=== PATIENT | male | born 1960 | race Caucasian/White ===

== ENCOUNTER 2017-10-10 14:55 | Inpatient (IN) | payer BC ==
[~2017-10-10] VITALS: Ht 177.8 cm; Wt 122.5 kg
[2017-10-10 15:00] VITALS: BP_SYST 119
[2017-10-10] MEDS ORDERED: METF1000 PO (15:19)
[2017-10-10] MEDS ORDERED: FURO-149 PO (15:19)
[2017-10-10] MEDS ORDERED: FLUT1BLS3 INH (15:19)
[2017-10-10] MEDS ORDERED: LISI30TA36 PO (15:19)
[2017-10-10] MEDS ORDERED: POTA20TA83 PO (15:19)
[2017-10-10] MEDS ORDERED: UMEC62.5 IH (15:19)
[2017-10-10] MEDS ORDERED: ALBMDI INH (15:19)
[2017-10-10] MEDS ORDERED: ALBUTEROL SULFATE 0.083% 2.5 MG/3 ML VIAL.NEB INH ONE (15:45)
[2017-10-10] MEDS ORDERED: FUROSEMIDE 40 MG/4 ML VIAL IVP ONE (15:45)
[2017-10-10] MEDS ORDERED: IPRATROPIUM BROM 0.5 MG/2.5 ML VIAL.NEB (ATROVENT) INH ONE (15:45)
[2017-10-10 15:57] LABS: BASOPHILS # (AUTO) 0.1 K/uL (0.0-0.2); LYMPHOCYTES # (AUTO) 1.1 K/uL (1.0-5.5); MONOCYTES # (AUTO) 1.1 K/uL (0.0-1.0); WHITE BLOOD COUNT (AUTO) 7.2 K/uL (4.8-10.8)
[2017-10-10 16:04] LABS: BASOPHILS % (AUTO) 0.7 % (0.0-2.0); EOSINOPHILS # (AUTO) 0.1 K/uL (0.0-0.4); EOSINOPHILS % (AUTO) 0.9 % (0.0-4.0); HEMATOCRIT 49.3 % (36-54); HEMOGLOBIN 15.7 g/dL (14.0-18.0); LYMPHOCYTES % (AUTO) 14.8 % (20.5-51.5); MEAN CORPUSCULAR HEMOGLOBIN 31 pg (27-31); MEAN CORPUSCULAR HGB CONC 32 % (32-36); MEAN CORPUSCULAR VOLUME 97 fL (79.0-98.0); MONOCYTES % (AUTO) 15.5 % (1.7-9.3); NEUTROPHILS # (AUTO) 4.8 K/uL (1.8-7.7); NEUTROPHILS % (AUTO) 68.1 % (40.0-70.0); PLATELET COUNT (AUTO) 164 K/uL (130-430); RED BLOOD CELL COUNT(AUTO) 5.09 MIL/uL (4.2-6.2); RED CELL DISTRIBUTION WIDTH 14.2 % (9.0-15.0)
[2017-10-10 16:24] LABS: CALCIUM 9.4 mg/dL (8.4-11.0); CREATININE 1.01 mg/dL (0.55-1.30); POTASSIUM 5.1 mmol/L (3.5-5.1)
[2017-10-10 16:29] LABS: ALBUMIN 2.9 g/dL (3.4-4.8); TOTAL BILIRUBIN 1.4 mg/dL (0.0-1.0)
[2017-10-10 16:31] LABS: INR 1.2 (0.80-1.20); PROTHROMBIN TIME 12.5 SECS (9.5-12.5)
[2017-10-10] MEDS ORDERED: methylPREDNISolone SOD SUCC/PF 62.5 MG/ML VIAL IVP ONE (17:00)
[2017-10-10 17:59] VITALS: BP_SYST 127
[2017-10-10] MEDS ORDERED: ACETAMINOPHEN 500 MG TABLET PO PRN (19:00)
[2017-10-10] MEDS ORDERED: DEXTROSE 50% JECT 50 ML DISP.SYRIN IVP PRN (19:00)
[2017-10-10] MEDS ORDERED: ALBUTEROL SULFATE 0.083% 2.5 MG/3 ML VIAL.NEB INH PRN (19:00)
[2017-10-10] MEDS ORDERED: *LOVENOX 1MG/KG Q24H/PHARMACY XX ONE (19:00)
[2017-10-10 20:00] VITALS: BP_SYST 124
[2017-10-10] MEDS ORDERED: IOHEXOL 350 mgI/mL, 150 ML INFUS..BTL IV ONE (20:11)
[2017-10-10 21:41] VITALS: BP_SYST 127
[2017-10-10] MEDS: FUROSEMIDE 20 MG/2 ML VIAL IVP SCH (21:43)
[2017-10-10] MEDS: ENOXAPARIN SODIUM 120 MG/0.8 ML SYRINGE SUBCUT SCH (21:44)
[2017-10-10] MEDS: INSULIN REGULAR, HUMAN 100 UNITS/ML, 10 ML VIAL (novoLIN R) SUBCUT PRN (21:58)
[2017-10-10 23:14] VITALS: BP_SYST 122
[2017-10-11] MEDS: INSULIN REGULAR, HUMAN 100 UNITS/ML, 10 ML VIAL (novoLIN R) SUBCUT PRN ×4 (06:23→20:43)
[2017-10-11 06:25] LABS: BASOPHILS % (AUTO) 0.1 % (0.0-2.0); EOSINOPHILS % (AUTO) 0.1 % (0.0-4.0); HEMATOCRIT 48.8 % (36-54); HEMOGLOBIN 15.5 g/dL (14.0-18.0); LYMPHOCYTES # (AUTO) 0.5 K/uL (1.0-5.5); LYMPHOCYTES % (AUTO) 9.1 % (20.5-51.5); MEAN CORPUSCULAR HEMOGLOBIN 31 pg (27-31); MEAN CORPUSCULAR HGB CONC 32 % (32-36); MEAN CORPUSCULAR VOLUME 97 fL (79.0-98.0); MONOCYTES # (AUTO) 0.2 K/uL (0.0-1.0); MONOCYTES % (AUTO) 4.4 % (1.7-9.3); NEUTROPHILS # (AUTO) 4.6 K/uL (1.8-7.7); NEUTROPHILS % (AUTO) 86.3 % (40.0-70.0); PLATELET COUNT (AUTO) 158 K/uL (130-430); RED BLOOD CELL COUNT(AUTO) 5.02 MIL/uL (4.2-6.2); RED CELL DISTRIBUTION WIDTH 14.3 % (9.0-15.0); WHITE BLOOD COUNT (AUTO) 5.3 K/uL (4.8-10.8)
[2017-10-11 06:26] LABS: CALCIUM 8.9 mg/dL (8.4-11.0); CREATININE 1.02 mg/dL (0.55-1.30); POTASSIUM 4.9 mmol/L (3.5-5.1)
[2017-10-11 06:35] LABS: ALBUMIN 2.8 g/dL (3.4-4.8); TOTAL BILIRUBIN 1.6 mg/dL (0.0-1.0)
[2017-10-11 08:21] VITALS: BP_SYST 111
[2017-10-11] MEDS: FUROSEMIDE 20 MG/2 ML VIAL IVP SCH (08:25)
[2017-10-11] MEDS ORDERED: ALBUTEROL SULFATE 0.083% 2.5 MG/3 ML VIAL.NEB INH PRN (09:30)
[2017-10-11] MEDS ORDERED: IPRATROPIUM BROM 0.5 MG/2.5 ML VIAL.NEB (ATROVENT) INH PRN (09:30)
[2017-10-11] MEDS: IPRATROPIUM BROM 0.5 MG/2.5 ML VIAL.NEB (ATROVENT) INH SCH ×4 (10:46→23:28)
[2017-10-11] MEDS: ALBUTEROL SULFATE 0.083% 2.5 MG/3 ML VIAL.NEB INH SCH ×4 (10:47→23:27)
[2017-10-11] MEDS ORDERED: FUROSEMIDE 100 MG in D5W 90 ML IV SCH (11:00)
[2017-10-11 11:31] VITALS: BP_SYST 115
[2017-10-11] MEDS ORDERED: SPIRONOLACTONE 25 MG TABLET (ALDACTONE) PO ONE (12:45)
[2017-10-11] MEDS ORDERED: METOLAZONE 2.5 MG TABLET PO ONE (12:45)
[2017-10-11 14:50] LABS: BF APPEARANCE UNSPUN HAZY (CLEAR); BODY FLUID COLOR YELLOW (LT YELLOW); BODY FLUID SOURCE/ TYPE ASCITES; BODY FLUID TOTAL VOLUME 3000 mL; RBC, BODY FLUID 3660 /uL; WBC, BODY FLUID 368 /uL
[2017-10-11 14:51] LABS: BODY FLUID OTHER CELLS 0 %; EOSINOPHIL, BODY FLUID 0 %; LYMPHOCYTES, BODY FLUID 82 %; MONOCYTES,BODY FLUID 15 %; NEUTROPHIL, BODY FLUID 3 %
[2017-10-11 15:15] LABS: SOURCE/TYPE ,BODY FLUID ASCITES
[2017-10-11 15:46] VITALS: BP_SYST 116
[2017-10-11 20:00] VITALS: BP_SYST 102
[2017-10-11] MEDS: ENOXAPARIN SODIUM 120 MG/0.8 ML SYRINGE SUBCUT SCH (20:28)
[2017-10-11 22:35] LABS: BODY FLUID GLUCOSE 273 mg/dL; BODY FLUID TOTAL PROTEIN 1.9 g/dL
[2017-10-11 23:30] VITALS: BP_SYST 131
[2017-10-12] MEDS: IPRATROPIUM BROM 0.5 MG/2.5 ML VIAL.NEB (ATROVENT) INH SCH ×6 (03:00→23:55)
[2017-10-12] MEDS: ALBUTEROL SULFATE 0.083% 2.5 MG/3 ML VIAL.NEB INH SCH ×6 (03:00→23:55)
[2017-10-12 06:01] LABS: BASOPHILS % (AUTO) 0.1 % (0.0-2.0); HEMATOCRIT 48.1 % (36-54); HEMOGLOBIN 15.2 g/dL (14.0-18.0); LYMPHOCYTES # (AUTO) 1.2 K/uL (1.0-5.5); LYMPHOCYTES % (AUTO) 13.2 % (20.5-51.5); MEAN CORPUSCULAR HEMOGLOBIN 31 pg (27-31); MEAN CORPUSCULAR HGB CONC 32 % (32-36); MEAN CORPUSCULAR VOLUME 98 fL (79.0-98.0); MONOCYTES % (AUTO) 10.7 % (1.7-9.3); PLATELET COUNT (AUTO) 163 K/uL (130-430); RED BLOOD CELL COUNT(AUTO) 4.93 MIL/uL (4.2-6.2); RED CELL DISTRIBUTION WIDTH 14.2 % (9.0-15.0); WHITE BLOOD COUNT (AUTO) 9.2 K/uL (4.8-10.8)
[2017-10-12 06:04] LABS: ALBUMIN 2.9 g/dL (3.4-4.8); CALCIUM 9.1 mg/dL (8.4-11.0); CREATININE 0.92 mg/dL (0.55-1.30); POTASSIUM 3.3 mmol/L (3.5-5.1); TOTAL BILIRUBIN 1.4 mg/dL (0.0-1.0)
[2017-10-12] MEDS: INSULIN REGULAR, HUMAN 100 UNITS/ML, 10 ML VIAL (novoLIN R) SUBCUT PRN ×3 (06:56→20:54)
[2017-10-12 07:55] VITALS: BP_SYST 127
[2017-10-12] MEDS ORDERED: POTASSIUM CHLORIDE 20 MEQ TAB.PRT.SR PO ONE (08:30)
[2017-10-12] MEDS: SPIRONOLACTONE 25 MG TABLET (ALDACTONE) PO SCH (08:47)
[2017-10-12] MEDS: FUROSEMIDE 100 MG in D5W 90 ML IV SCH ×2 (11:00→14:08)
[2017-10-12 12:18] VITALS: BP_SYST 106
[2017-10-12 16:00] VITALS: BP_SYST 124
[2017-10-12 20:00] VITALS: BP_SYST 111
[2017-10-12] MEDS: ENOXAPARIN SODIUM 120 MG/0.8 ML SYRINGE SUBCUT SCH (20:49)
[2017-10-13 01:53] VITALS: BP_SYST 107
[2017-10-13] MEDS ORDERED: FUROSEMIDE 40 MG/4 ML VIAL ONE (03:06)
[2017-10-13] MEDS ORDERED: FUROSEMIDE 20 MG/2 ML VIAL ONE (03:06)
[2017-10-13 06:58] LABS: BASOPHILS % (AUTO) 0.5 % (0.0-2.0); EOSINOPHILS # (AUTO) 0.1 K/uL (0.0-0.4); EOSINOPHILS % (AUTO) 0.9 % (0.0-4.0); HEMATOCRIT 47.5 % (36-54); HEMOGLOBIN 15.6 g/dL (14.0-18.0); LYMPHOCYTES # (AUTO) 1.6 K/uL (1.0-5.5); LYMPHOCYTES % (AUTO) 21.6 % (20.5-51.5); MEAN CORPUSCULAR HEMOGLOBIN 31 pg (27-31); MEAN CORPUSCULAR HGB CONC 33 % (32-36); MEAN CORPUSCULAR VOLUME 96 fL (79.0-98.0); MONOCYTES # (AUTO) 0.8 K/uL (0.0-1.0); MONOCYTES % (AUTO) 11.2 % (1.7-9.3); NEUTROPHILS # (AUTO) 5.1 K/uL (1.8-7.7); NEUTROPHILS % (AUTO) 65.8 % (40.0-70.0); PLATELET COUNT (AUTO) 178 K/uL (130-430); RED BLOOD CELL COUNT(AUTO) 4.96 MIL/uL (4.2-6.2); RED CELL DISTRIBUTION WIDTH 14.2 % (9.0-15.0); WHITE BLOOD COUNT (AUTO) 7.6 K/uL (4.8-10.8)
[2017-10-13 07:55] VITALS: BP_SYST 117
[2017-10-13] MEDS: IPRATROPIUM BROM 0.5 MG/2.5 ML VIAL.NEB (ATROVENT) INH SCH ×5 (08:05→23:00)
[2017-10-13] MEDS: ALBUTEROL SULFATE 0.083% 2.5 MG/3 ML VIAL.NEB INH SCH ×5 (08:05→23:00)
[2017-10-13] MEDS: SPIRONOLACTONE 25 MG TABLET (ALDACTONE) PO SCH (08:44)
[2017-10-13] MEDS: FUROSEMIDE 100 MG in D5W 90 ML IV SCH (08:45)
[2017-10-13 12:55] VITALS: BP_SYST 106
[2017-10-13 14:16] VITALS: BP_SYST 106
[2017-10-13 16:00] VITALS: BP_SYST 127
[2017-10-13 19:50] VITALS: BP_SYST 97
[2017-10-13] MEDS: ENOXAPARIN SODIUM 120 MG/0.8 ML SYRINGE SUBCUT SCH (20:51)
[2017-10-13] MEDS: INSULIN REGULAR, HUMAN 100 UNITS/ML, 10 ML VIAL (novoLIN R) SUBCUT PRN (20:54)
[2017-10-14 00:14] VITALS: BP_SYST 93
[2017-10-14] MEDS: ALBUTEROL SULFATE 0.083% 2.5 MG/3 ML VIAL.NEB INH SCH ×6 (04:50→22:47)
[2017-10-14] MEDS: IPRATROPIUM BROM 0.5 MG/2.5 ML VIAL.NEB (ATROVENT) INH SCH ×6 (04:51→22:47)
[2017-10-14 07:10] LABS: CALCIUM 9.2 mg/dL (8.4-11.0); CREATININE 0.8 mg/dL (0.55-1.30); POTASSIUM 3.5 mmol/L (3.5-5.1)
[2017-10-14 08:00] VITALS: BP_SYST 110
[2017-10-14] MEDS: SPIRONOLACTONE 25 MG TABLET (ALDACTONE) PO SCH (08:36)
[2017-10-14] MEDS: FUROSEMIDE 100 MG in D5W 90 ML IV SCH (11:29)
[2017-10-14] MEDS: INSULIN REGULAR, HUMAN 100 UNITS/ML, 10 ML VIAL (novoLIN R) SUBCUT PRN ×2 (11:35→20:59)
[2017-10-14] MEDS ORDERED: MILK OF MAGNESIA 30 ML UDC PO PRN (12:00)
[2017-10-14 12:38] VITALS: BP_SYST 106
[2017-10-14] MEDS ORDERED: METOLAZONE 5 MG TABLET PO ONE (13:15)
[2017-10-14] MEDS: NEOMY SULF/BACITRAC ZN/POLY 14.2 GM OINT..GM. TP SCH ×2 (15:13→21:00)
[2017-10-14 16:00] VITALS: BP_SYST 109
[2017-10-14 20:45] VITALS: BP_SYST 103
[2017-10-14] MEDS: POTASSIUM CHLORIDE 20 MEQ/PKT PACKET PO SCH (20:49)
[2017-10-14] MEDS: METOLAZONE 5 MG TABLET PO SCH (20:50)
[2017-10-14] MEDS: DOCUSATE SODIUM 100 MG CAPSULE PO SCH (20:51)
[2017-10-14] MEDS: ENOXAPARIN SODIUM 120 MG/0.8 ML SYRINGE SUBCUT SCH (20:51)
[2017-10-15 00:17] VITALS: BP_SYST 117
[2017-10-15] MEDS: IPRATROPIUM BROM 0.5 MG/2.5 ML VIAL.NEB (ATROVENT) INH SCH ×5 (03:00→23:00)
[2017-10-15] MEDS: ALBUTEROL SULFATE 0.083% 2.5 MG/3 ML VIAL.NEB INH SCH ×5 (03:00→23:00)
[2017-10-15 07:25] LABS: BASOPHILS % (AUTO) 0.6 % (0.0-2.0); EOSINOPHILS # (AUTO) 0.3 K/uL (0.0-0.4); EOSINOPHILS % (AUTO) 3.7 % (0.0-4.0); HEMATOCRIT 48.8 % (36-54); LYMPHOCYTES # (AUTO) 1.5 K/uL (1.0-5.5); LYMPHOCYTES % (AUTO) 20.5 % (20.5-51.5); MEAN CORPUSCULAR HEMOGLOBIN 31 pg (27-31); MEAN CORPUSCULAR HGB CONC 33 % (32-36); MEAN CORPUSCULAR VOLUME 95 fL (79.0-98.0); MONOCYTES # (AUTO) 0.9 K/uL (0.0-1.0); MONOCYTES % (AUTO) 12.3 % (1.7-9.3); NEUTROPHILS # (AUTO) 4.4 K/uL (1.8-7.7); NEUTROPHILS % (AUTO) 62.9 % (40.0-70.0); PLATELET COUNT (AUTO) 132 K/uL (130-430); RED BLOOD CELL COUNT(AUTO) 5.12 MIL/uL (4.2-6.2); RED CELL DISTRIBUTION WIDTH 13.8 % (9.0-15.0); WHITE BLOOD COUNT (AUTO) 7.1 K/uL (4.8-10.8)
[2017-10-15 07:43] LABS: ALBUMIN 2.9 g/dL (3.4-4.8); CALCIUM 9.5 mg/dL (8.4-11.0); CREATININE 0.86 mg/dL (0.55-1.30); POTASSIUM 3.1 mmol/L (3.5-5.1); TOTAL BILIRUBIN 2.2 mg/dL (0.0-1.0)
[2017-10-15 08:00] VITALS: BP_SYST 122
[2017-10-15] MEDS: POTASSIUM CHLORIDE 20 MEQ/PKT PACKET PO SCH ×3 (09:26→21:00)
[2017-10-15] MEDS: DOCUSATE SODIUM 100 MG CAPSULE PO SCH ×2 (09:26→21:00)
[2017-10-15] MEDS: METOLAZONE 5 MG TABLET PO SCH ×2 (09:28→21:02)
[2017-10-15] MEDS: SPIRONOLACTONE 25 MG TABLET (ALDACTONE) PO SCH (09:29)
[2017-10-15] MEDS: NEOMY SULF/BACITRAC ZN/POLY 14.2 GM OINT..GM. TP SCH ×2 (09:30→21:02)
[2017-10-15] MEDS: FUROSEMIDE 100 MG in D5W 90 ML IV SCH (11:26)
[2017-10-15] MEDS: INSULIN REGULAR, HUMAN 100 UNITS/ML, 10 ML VIAL (novoLIN R) SUBCUT PRN ×2 (11:31→21:10)
[2017-10-15 12:08] VITALS: BP_SYST 125
[2017-10-15 16:00] VITALS: BP_SYST 100
[2017-10-15 20:09] VITALS: BP_SYST 111
[2017-10-15] MEDS: ENOXAPARIN SODIUM 120 MG/0.8 ML SYRINGE SUBCUT SCH (21:01)
[2017-10-16] VITALS (8 sets, daily range): BP systolic 100–120
[2017-10-16] MEDS ORDERED: FUROSEMIDE 40 MG/4 ML VIAL ONE (00:33)
[2017-10-16] MEDS ORDERED: FUROSEMIDE 20 MG/2 ML VIAL ONE (00:34)
[2017-10-16] MEDS: FUROSEMIDE 100 MG in D5W 90 ML IV SCH (01:24)
[2017-10-16] MEDS: ALBUTEROL SULFATE 0.083% 2.5 MG/3 ML VIAL.NEB INH SCH ×5 (03:00→23:00)
[2017-10-16] MEDS: IPRATROPIUM BROM 0.5 MG/2.5 ML VIAL.NEB (ATROVENT) INH SCH ×5 (03:00→23:00)
[2017-10-16 07:16] LABS: CALCIUM 10.4 mg/dL (8.4-11.0); CREATININE 0.81 mg/dL (0.55-1.30); POTASSIUM 3.4 mmol/L (3.5-5.1)
[2017-10-16] MEDS: POTASSIUM CHLORIDE 20 MEQ/PKT PACKET PO SCH ×3 (08:28→21:18)
[2017-10-16] MEDS: SPIRONOLACTONE 25 MG TABLET (ALDACTONE) PO SCH (08:28)
[2017-10-16] MEDS: METOLAZONE 5 MG TABLET PO SCH ×2 (08:29→21:18)
[2017-10-16] MEDS: DOCUSATE SODIUM 100 MG CAPSULE PO SCH ×2 (08:29→21:16)
[2017-10-16] MEDS: NEOMY SULF/BACITRAC ZN/POLY 14.2 GM OINT..GM. TP SCH ×2 (08:30→21:19)
[2017-10-16] MEDS ORDERED: POTASSIUM CHLORIDE 20 MEQ TAB.PRT.SR PO ONE (10:15)
[2017-10-16] MEDS: INSULIN REGULAR, HUMAN 100 UNITS/ML, 10 ML VIAL (novoLIN R) SUBCUT PRN ×2 (16:28→21:26)
[2017-10-16] MEDS: ENOXAPARIN SODIUM 120 MG/0.8 ML SYRINGE SUBCUT SCH (21:18)
[2017-10-17 00:46] VITALS: BP_SYST 116
[2017-10-17] MEDS: IPRATROPIUM BROM 0.5 MG/2.5 ML VIAL.NEB (ATROVENT) INH SCH ×3 (03:00→11:44)
[2017-10-17] MEDS: ALBUTEROL SULFATE 0.083% 2.5 MG/3 ML VIAL.NEB INH SCH ×3 (03:00→11:44)
[2017-10-17 08:10] VITALS: BP_SYST 110
[2017-10-17] MEDS: POTASSIUM CHLORIDE 20 MEQ/PKT PACKET PO SCH (09:49)
[2017-10-17] MEDS: DOCUSATE SODIUM 100 MG CAPSULE PO SCH (09:49)
[2017-10-17] MEDS: SPIRONOLACTONE 25 MG TABLET (ALDACTONE) PO SCH (09:50)
[2017-10-17] MEDS: NEOMY SULF/BACITRAC ZN/POLY 14.2 GM OINT..GM. TP SCH (09:50)
[2017-10-17] MEDS: METOLAZONE 5 MG TABLET PO SCH (09:50)
[2017-10-17 10:49] VITALS: BP_SYST 110
[2017-10-17 12:15] VITALS: BP_SYST 126
== END 2017-10-17 12:30 | disposition home or self-care (01) | DRG 291 ==
LOC: SED 14:55 → STU 17:24 → SMU 10-16 18:11
PROVIDERS: ADMIT Internal Medicine Hospice and Palliative Medicine; ATTEND Internal Medicine Hospice and Palliative Medicine
PROC: 0W9G3ZZ Drainage of Peritoneal Cavity, Percutaneous Approach (ICD-10-PCS; principal; 2017-10-11)
PROC: 5A09357 Assistance with Respiratory Ventilation, Less than 24 Consecutive Hours, Continuous Positive Airway Pressure (ICD-10-PCS; 2017-10-11)
PROC: 5A09357 Assistance with Respiratory Ventilation, Less than 24 Consecutive Hours, Continuous Positive Airway Pressure (ICD-10-PCS; 2017-10-12)
PROC: 5A09357 Assistance with Respiratory Ventilation, Less than 24 Consecutive Hours, Continuous Positive Airway Pressure (ICD-10-PCS; 2017-10-13)
PROC: 5A09357 Assistance with Respiratory Ventilation, Less than 24 Consecutive Hours, Continuous Positive Airway Pressure (ICD-10-PCS; 2017-10-14)
PROC: 5A09357 Assistance with Respiratory Ventilation, Less than 24 Consecutive Hours, Continuous Positive Airway Pressure (ICD-10-PCS; 2017-10-15)
PROC: 5A09357 Assistance with Respiratory Ventilation, Less than 24 Consecutive Hours, Continuous Positive Airway Pressure (ICD-10-PCS; 2017-10-16)
PROC: 5A09357 Assistance with Respiratory Ventilation, Less than 24 Consecutive Hours, Continuous Positive Airway Pressure (ICD-10-PCS; 2017-10-17)
DX: I13.0 Hypertensive heart and chronic kidney disease with heart failure and stage 1 through stage 4 chronic kidney disease, or unspecified chronic kidney disease (principal); J96.01 Acute respiratory failure with hypoxia; I27.20 Pulmonary hypertension, unspecified; E11.22 Type 2 diabetes mellitus with diabetic chronic kidney disease; E66.01 Morbid (severe) obesity due to excess calories; I27.81 Cor pulmonale (chronic); I50.33 Acute on chronic diastolic (congestive) heart failure; I24.9 Acute ischemic heart disease, unspecified; R18.8 Other ascites; R16.2 Hepatomegaly with splenomegaly, not elsewhere classified; E11.9 Type 2 diabetes mellitus without complications; G47.33 Obstructive sleep apnea (adult) (pediatric); E87.6 Hypokalemia; F17.210 Nicotine dependence, cigarettes, uncomplicated; K59.00 Constipation, unspecified; J44.9 Chronic obstructive pulmonary disease, unspecified; N18.9 Chronic kidney disease, unspecified; Z82.49 Family history of ischemic heart disease and other diseases of the circulatory system; Z83.3 Family history of diabetes mellitus; Z88.6 Allergy status to analgesic agent; Z79.899 Other long term (current) drug therapy; Z91.030 Bee allergy status; Z68.38 Body mass index [BMI] 38.0-38.9, adult
CPT/HCPCS: 36415; 36600; 49083; 71045; 71275; 76700-TC; 80048; 80053; 82550-TC; 82803-TC; 82947-TC; 82962; 83880; 84157-TC; 84484; 85025; 85379; 85610-TC; 85730-TC; 88108; 88305; 88313; 89051-TC; 89060-TC; 93005; 93306; 93970; 94640; 94660; 94760; 96374; 99285; A5061; C1729; J1650; J1815; J1940; J2930; J7060; Q9967

== ENCOUNTER 2017-10-21 11:18 | Emergency (ER) | payer BC ==
[~2017-10-21] VITALS: Ht 177.8 cm; Wt 119.3 kg
[~2017-10-21 11:18] MED LIST: ALBMDI INH; FLUT1BLS3 INH; FURO-149 PO; LISI30TA36 PO; METF1000 PO; POTA20TA83 PO; UMEC62.5 IH
[2017-10-21 11:23] VITALS: BP_SYST 116
[2017-10-21] MEDS ORDERED: NACL 0.9% 1,000 ML IV ONE (11:46)
[2017-10-21] MEDS ORDERED: cefTRIAXone 1 GM IVPB PREMIX 50 ML IV ONE (12:00)
[2017-10-21] MEDS ORDERED: MORPHINE 4 MG/ML INJ. SYRINGE IVP ONE (12:00)
[2017-10-21 12:09] LABS: BASOPHILS # (AUTO) 0.1 K/uL (0.0-0.2); BASOPHILS % (AUTO) 1.4 % (0.0-2.0); EOSINOPHILS # (AUTO) 0.1 K/uL (0.0-0.4); EOSINOPHILS % (AUTO) 1.6 % (0.0-4.0); HEMATOCRIT 54.2 % (36-54); HEMOGLOBIN 17.7 g/dL (14.0-18.0); LYMPHOCYTES # (AUTO) 1.4 K/uL (1.0-5.5); LYMPHOCYTES % (AUTO) 18.4 % (20.5-51.5); MEAN CORPUSCULAR HEMOGLOBIN 30 pg (27-31); MEAN CORPUSCULAR HGB CONC 33 % (32-36); MEAN CORPUSCULAR VOLUME 93 fL (79.0-98.0); MONOCYTES # (AUTO) 1.1 K/uL (0.0-1.0); MONOCYTES % (AUTO) 14.5 % (1.7-9.3); NEUTROPHILS # (AUTO) 4.9 K/uL (1.8-7.7); NEUTROPHILS % (AUTO) 64.1 % (40.0-70.0); PLATELET COUNT (AUTO) 108 K/uL (130-430); RED BLOOD CELL COUNT(AUTO) 5.84 MIL/uL (4.2-6.2); RED CELL DISTRIBUTION WIDTH 13.8 % (9.0-15.0); WHITE BLOOD COUNT (AUTO) 7.6 K/uL (4.8-10.8)
[2017-10-21 12:20] LABS: CALCIUM 9.3 mg/dL (8.4-11.0); CREATININE 0.97 mg/dL (0.55-1.30)
[2017-10-21 12:24] LABS: ALBUMIN 3.3 g/dL (3.4-4.8); INR 1.2 (0.80-1.20); PROTHROMBIN TIME 12.1 SECS (9.5-12.5); TOTAL BILIRUBIN 2.1 mg/dL (0.0-1.0)
[2017-10-21] MEDS ORDERED: BACITRACIN 1 GM OINT TP ONE ×2 (14:00→14:02)
[2017-10-21 14:13] VITALS: BP_SYST 125
== END 2017-10-21 14:13 | disposition home or self-care (01) ==
LOC: SED 11:18
DX: L03.115 Cellulitis of right lower limb (principal); I11.0 Hypertensive heart disease with heart failure; I50.9 Heart failure, unspecified; J44.9 Chronic obstructive pulmonary disease, unspecified; E11.9 Type 2 diabetes mellitus without complications; Z79.82 Long term (current) use of aspirin; Z79.899 Other long term (current) drug therapy
CPT/HCPCS: 36415; 71045; 80053; 82550; 83605; 83690; 84484; 85025; 85610; 85730; 87040; 93005; 96365; 99285; J0696; J7030; J2270

== ENCOUNTER 2022-05-25 13:12 | Inpatient (IN) | payer BC ==
[~2022-05-25] VITALS: Ht 177.8 cm; Wt 133.4 kg
[~2022-05-25 13:12] MED LIST changes: +POTA-197 PO; -POTA20TA83 PO
[2022-05-25 13:21] VITALS: BP_SYST 126
[2022-05-25] MEDS ORDERED: IPRATROPIUM/ALBUTEROL SULFATE 3 ML AMPUL.NEB (DUONEB) INH ONE (13:45)
[2022-05-25] MEDS ORDERED: methylPREDNISolone SOD SUCC/PF 62.5 MG/ML VIAL IVP ONE (13:45)
[2022-05-25 13:58] LABS: BASOPHILS # (AUTO) 0.1 K/uL (0.0-0.2); BASOPHILS % (AUTO) 1.1 % (0.0-2.0); EOSINOPHILS # (AUTO) 0.1 K/uL (0.0-0.4); EOSINOPHILS % (AUTO) 2.9 % (0.0-4.0); HEMATOCRIT 46.7 % (36-54); HEMOGLOBIN 15.4 g/dL (14.0-18.0); LYMPHOCYTES % (AUTO) 19.2 % (20.5-51.5); MEAN CORPUSCULAR HEMOGLOBIN 31 pg (27-31); MEAN CORPUSCULAR HGB CONC 33 % (32-36); MEAN CORPUSCULAR VOLUME 95 fL (79.0-98.0); MONOCYTES # (AUTO) 0.6 K/uL (0.0-1.0); MONOCYTES % (AUTO) 11.4 % (1.7-9.3); NEUTROPHILS # (AUTO) 3.4 K/uL (1.8-7.7); NEUTROPHILS % (AUTO) 65.4 % (40.0-70.0); PLATELET COUNT (AUTO) 67 K/uL (130-430); RED BLOOD CELL COUNT(AUTO) 4.89 MIL/uL (4.2-6.2); RED CELL DISTRIBUTION WIDTH 15.8 % (9.0-15.0); WHITE BLOOD COUNT (AUTO) 5.2 K/uL (4.8-10.8)
[2022-05-25 14:20] LABS: ANION GAP 12 (5-15); CALCIUM 10.1 mg/dL (8.4-11.0); CHLORIDE 109 mmol/L (98-107); CREATININE 1.51 mg/dL (0.55-1.30); GLUCOSE 98 mg/dL (70-99); UREA NITROGEN, BLOOD 23 mg/dL (8-21)
[2022-05-25 14:22] LABS: GFR AFRICAN AMERICAN 61 mL/min (>90)
[2022-05-25 14:30] LABS: ALANINE AMINOTRANSFERASE 25 U/L (12-78); ALBUMIN 3.2 g/dL (3.4-4.8); ASPARTATE AMINOTRANSFERASE 38 U/L (10-37); TOTAL BILIRUBIN 1.9 mg/dL (0.0-1.0)
[2022-05-25 17:30] VITALS: BP_SYST 150
[2022-05-25] MEDS ORDERED: ACETAMINOPHEN 325 MG TABLET PO PRN (17:30)
[2022-05-25] MEDS ORDERED: ONDANSETRON HCL 4 MG/2 ML VIAL IVP PRN (17:30)
[2022-05-25] MEDS ORDERED: MORPHINE 2 MG/ML INJ. SYRINGE IVP PRN ×2 (17:30)
[2022-05-25] MEDS ORDERED: ZOLPIDEM TARTRATE 5 MG TABLET PO PRN (17:30)
[2022-05-25] MEDS ORDERED: NALOXONE HCL 0.4 MG/ML AMP (NARCAN) IVP PRN ×2 (17:30)
[2022-05-25] MEDS ORDERED: MAGNESIUM SULFATE 50 ML IV PRN (17:30)
[2022-05-25] MEDS ORDERED: DOCUSATE SODIUM 100 MG CAPSULE PO PRN (17:30)
[2022-05-25] MEDS ORDERED: MUPIROCIN 2% TOPICAL OINTMENT 22 GM NS PRN (17:30)
[2022-05-25] MEDS ORDERED: POTASSIUM CHLORIDE 20 MEQ TAB.PRT.SR PO PRN (17:30)
[2022-05-25] MEDS ORDERED: LORazepam 2 MG/ML VIAL IVP PRN (17:30)
[2022-05-25 17:44] VITALS: BP_SYST 126
[2022-05-25] MEDS ORDERED: ERGO400T7 PO (19:07)
[2022-05-25] MEDS ORDERED: LEVO100T9 PO (19:07)
[2022-05-25 20:20] VITALS: BP_SYST 114
[2022-05-25] MEDS: IPRATROPIUM/ALBUTEROL SULFATE 3 ML AMPUL.NEB (DUONEB) INH PRN (20:30)
[2022-05-25] MEDS: METHYLPREDNISOLONE SOD SUCC 40 MG/ML VIAL IVP SCH (20:43)
[2022-05-25] MEDS: NACL 0.9% 1,000 ML IV SCH (20:46)
[2022-05-25] MEDS: INSULIN REGULAR, HUMAN 100 UNITS/ML, 3 ML VIAL (humuLIN R) SUBCUT SCH (20:58)
[2022-05-25] MEDS ORDERED: HEPARIN SODIUM,PORCINE 5,000 UNITS/ML VIAL SUBCUT SCH (21:00)
[2022-05-26] VITALS (17 sets, daily range): BP systolic 70–119
[2022-05-26] MEDS: INSULIN REGULAR, HUMAN 100 UNITS/ML, 3 ML VIAL (humuLIN R) SUBCUT SCH ×6 (06:13→23:25)
[2022-05-26] MEDS: IPRATROPIUM/ALBUTEROL SULFATE 3 ML AMPUL.NEB (DUONEB) INH PRN ×2 (06:38→12:02)
[2022-05-26 07:03] LABS: CALCIUM 9.5 mg/dL (8.4-11.0); CREATININE 1.63 mg/dL (0.55-1.30)
[2022-05-26 07:23] LABS: BASOPHILS % (AUTO) 0.2 % (0.0-2.0); HEMATOCRIT 42.4 % (36-54); HEMOGLOBIN 14.3 g/dL (14.0-18.0); LYMPHOCYTES # (AUTO) 0.4 K/uL (1.0-5.5); LYMPHOCYTES % (AUTO) 11.3 % (20.5-51.5); MEAN CORPUSCULAR HEMOGLOBIN 32 pg (27-31); MEAN CORPUSCULAR HGB CONC 34 % (32-36); MEAN CORPUSCULAR VOLUME 94 fL (79.0-98.0); MONOCYTES # (AUTO) 0.1 K/uL (0.0-1.0); MONOCYTES % (AUTO) 4.1 % (1.7-9.3); NEUTROPHILS # (AUTO) 2.6 K/uL (1.8-7.7); NEUTROPHILS % (AUTO) 84.4 % (40.0-70.0); PLATELET COUNT (AUTO) 72 K/uL (130-430); RED BLOOD CELL COUNT(AUTO) 4.49 MIL/uL (4.2-6.2); RED CELL DISTRIBUTION WIDTH 14.9 % (9.0-15.0); WHITE BLOOD COUNT (AUTO) 3.1 K/uL (4.8-10.8)
[2022-05-26] MEDS ORDERED: DIATR MEGLU/DIATRIZ SOD 30 ML SOLUTION PO ONE (08:56)
[2022-05-26] MEDS ORDERED: lisinopriL 20 MG TABLET PO SCH (09:00)
[2022-05-26] MEDS ORDERED: FUROSEMIDE 40 MG TABLET PO SCH (09:00)
[2022-05-26] MEDS ORDERED: UMECLIDINIUM BROMIDE 62.5 MCG IH SCH (09:00)
[2022-05-26] MEDS: METHYLPREDNISOLONE SOD SUCC 40 MG/ML VIAL IVP SCH ×2 (09:00→18:49)
[2022-05-26] MEDS ORDERED: FLUTICASONE/VILANTEROL 1 EACH BLST.W.DEV INH SCH (09:00)
[2022-05-26] MEDS: NACL 0.9% 1,000 ML IV SCH ×2 (09:01→22:25)
[2022-05-26 09:39] LABS: BARBITURATE, URINE NEGATIVE (NEG <=200); BENZODIAZEPINE, URINE NEGATIVE (NEG <=150); CANNABINOID, URINE NEGATIVE (NEG <=50); COCAINE, URINE NEGATIVE (NEG <=150); METHAMPHETAMINES SCREEN,URINE NEGATIVE (NEG <=500); OPIATE, URINE NEGATIVE (NEG <=100); PHENCYCLIDINE SCREEN,URINE NEGATIVE (NEG <=25); UR TRICYCLIC ANTIDEPRESSANTS NEGATIVE (NEG <=300); URINE AMPHETAMINE NEGATIVE (NEG <=500); URINE METHADONE NEGATIVE (NEG <=200); URINE OXYCODONE SCREEN NEGATIVE (NEG <=100); URINE PROPOXYPHENE SCREEN NEGATIVE (NEG <=300)
[2022-05-26] MEDS ORDERED: FUROSEMIDE 40 MG/4 ML VIAL IVP ONE (12:45)
[2022-05-26] MEDS ORDERED: METHYLPREDNISOLONE SOD SUCC 40 MG/ML VIAL IVP ONE (12:45)
[2022-05-26 13:33] LABS: ALBUMIN 3.3 g/dL (3.4-4.8); CALCIUM 9.6 mg/dL (8.4-11.0); CREATININE 1.72 mg/dL (0.55-1.30); TOTAL BILIRUBIN 2.3 mg/dL (0.0-1.0)
[2022-05-26] MEDS: LORazepam 2 MG/ML VIAL IVP PRN ×2 (14:00→22:29)
[2022-05-26 16:09] LABS: BILIRUBIN,URINE NEGATIVE (NEGATIVE); BLOOD, URINE NEGATIVE (NEGATIVE); CLARITY/URINE CLEAR (CLEAR); COLOR,URINE YELLOW (YELLOW); GLUCOSE,URINE NEGATIVE (NEGATIVE); KETONES,URINE NEGATIVE (NEGATIVE); LEUKOCYTE ESTERASE ,URINE NEGATIVE (NEGATIVE); NITRITE, URINE POSITIVE (NEGATIVE); PH,URINE 5.5 (5.0-8.0); PROTEIN URINE NEGATIVE (NEGATIVE); UROBILINOGEN,URINE 0.2 (0.2-1.0)
[2022-05-26 16:13] LABS: BACTERIA,URINE MODERATE /HPF (None Seen); MUCUS,URINE 1+ /LPF (None Seen); RBC,URINE NONE SEEN /HPF (0-3)
[2022-05-26] MEDS ORDERED: DEXMEDETOMIDINE HCL 200 MCG/2 ML VIAL IV ONE (16:14)
[2022-05-26] MEDS: DEXMEDETOMIDINE HCL 400 MCG in NS 96 ML IV PRN (16:29)
[2022-05-26] MEDS ORDERED: HEPARIN 25,000 UNITS/D5W 250ML 250 ML IV PRN (16:45)
[2022-05-26] MEDS ORDERED: HEPARIN SODIUM,PORCINE 3000 UNITS/0.6 ML BOLUS IVP PRN (17:15)
[2022-05-26] MEDS ORDERED: HEPARIN SODIUM,PORCINE 2000 UNITS/0.4 ML BOLUS IVP PRN (17:15)
[2022-05-26] MEDS ORDERED: HEPARIN SODIUM,PORCINE 5,000 UNITS/ML VIAL IVP ONE (17:30)
[2022-05-26] MEDS: IPRATROPIUM/ALBUTEROL SULFATE 3 ML AMPUL.NEB (DUONEB) INH SCH ×3 (18:15→23:51)
[2022-05-26] MEDS ORDERED: NOREPINEPHRINE 4 MG/4 ML VIAL IV ONE (20:53)
[2022-05-26] MEDS ORDERED: NS 250 ML IV ONE (21:00)
[2022-05-26] MEDS ORDERED: NOREPINEPHRINE BITARTRATE 8 MG in NS 242 ML IV PRN (21:00)
[2022-05-26] MEDS ORDERED: FUROSEMIDE 40 MG/4 ML VIAL IVP SCH (21:00)
[2022-05-27] VITALS (9 sets, daily range): BP systolic 0–128
[2022-05-27] MEDS: METHYLPREDNISOLONE SOD SUCC 40 MG/ML VIAL IVP SCH ×2 (01:42→06:00)
[2022-05-27] MEDS ORDERED: PROPOFOL DRIP 100 ML IV ONE (02:49)
[2022-05-27] MEDS: IPRATROPIUM/ALBUTEROL SULFATE 3 ML AMPUL.NEB (DUONEB) INH SCH ×2 (03:00→07:00)
[2022-05-27] MEDS ORDERED: LORazepam 2 MG/ML VIAL ONE (03:07)
[2022-05-27] MEDS ORDERED: LORazepam 2 MG/ML VIAL IM ONE (03:30)
[2022-05-27] MEDS ORDERED: DEXMEDETOMIDINE HCL 200 MCG/2 ML VIAL IV ONE (06:12)
[2022-05-27] MEDS: PROPOFOL DRIP 100 ML IV PRN ×2 (06:19→07:45)
[2022-05-27] MEDS: DEXMEDETOMIDINE HCL 400 MCG in NS 96 ML IV PRN (06:23)
[2022-05-27 06:56] LABS: INR 1.5 (0.80-1.20); PROTHROMBIN TIME 14.5 SECS (9.5-12.5)
[2022-05-27] MEDS: INSULIN REGULAR, HUMAN 100 UNITS/ML, 3 ML VIAL (humuLIN R) SUBCUT SCH (07:00)
[2022-05-27 07:11] LABS: BASOPHILS % (AUTO) 0.2 % (0.0-2.0); HEMATOCRIT 47.8 % (36-54); HEMOGLOBIN 16.3 g/dL (14.0-18.0); LYMPHOCYTES # (AUTO) 0.4 K/uL (1.0-5.5); LYMPHOCYTES % (AUTO) 5.5 % (20.5-51.5); MEAN CORPUSCULAR HEMOGLOBIN 32 pg (27-31); MEAN CORPUSCULAR HGB CONC 34 % (32-36); MEAN CORPUSCULAR VOLUME 94 fL (79.0-98.0); MONOCYTES # (AUTO) 0.4 K/uL (0.0-1.0); MONOCYTES % (AUTO) 5.3 % (1.7-9.3); NEUTROPHILS # (AUTO) 7.1 K/uL (1.8-7.7); PLATELET COUNT (AUTO) 101 K/uL (130-430); RED CELL DISTRIBUTION WIDTH 15.5 % (9.0-15.0)
[2022-05-27 08:45] LABS: ALBUMIN 3.3 g/dL (3.4-4.8); CALCIUM 9.3 mg/dL (8.4-11.0); CREATININE 1.54 mg/dL (0.55-1.30); THYROID STIMULATING HORMONE 4.3 uIu/mL (0.36-3.74); TOTAL BILIRUBIN 2.9 mg/dL (0.0-1.0)
[2022-05-27] MEDS ORDERED: ETOMIDATE 20 MG/ 10 ML VIAL (AMIDATE) IVP ONE (09:19)
== END 2022-05-27 06:51 | DRG 208 ==
LOC: SED 13:12 → STU 16:12 → SIC 05-26 11:40
PROVIDERS: ADMIT General Practice; ATTEND General Practice
PROC: 5A09357 Assistance with Respiratory Ventilation, Less than 24 Consecutive Hours, Continuous Positive Airway Pressure (ICD-10-PCS; 2022-05-25)
PROC: 5A09357 Assistance with Respiratory Ventilation, Less than 24 Consecutive Hours, Continuous Positive Airway Pressure (ICD-10-PCS; 2022-05-26)
PROC: 5A1935Z Respiratory Ventilation, Less than 24 Consecutive Hours (ICD-10-PCS; principal; 2022-05-27)
PROC: 5A09357 Assistance with Respiratory Ventilation, Less than 24 Consecutive Hours, Continuous Positive Airway Pressure (ICD-10-PCS; 2022-05-27)
PROC: 0BH17EZ Insertion of Endotracheal Airway into Trachea, Via Natural or Artificial Opening (ICD-10-PCS; 2022-05-27)
DX: J44.1 Chronic obstructive pulmonary disease with (acute) exacerbation (principal); J96.01 Acute respiratory failure with hypoxia; I50.43 Acute on chronic combined systolic (congestive) and diastolic (congestive) heart failure; N17.0 Acute kidney failure with tubular necrosis; I11.0 Hypertensive heart disease with heart failure; I27.29 Other secondary pulmonary hypertension; D69.6 Thrombocytopenia, unspecified; K74.60 Unspecified cirrhosis of liver; I87.8 Other specified disorders of veins; E11.9 Type 2 diabetes mellitus without complications; E66.01 Morbid (severe) obesity due to excess calories; Z20.822 Contact with and (suspected) exposure to COVID-19; R74.01 Elevation of levels of liver transaminase levels; E80.6 Other disorders of bilirubin metabolism; F10.10 Alcohol abuse, uncomplicated; Y90.9 Presence of alcohol in blood, level not specified; I27.81 Cor pulmonale (chronic); Z66 Do not resuscitate; Z88.6 Allergy status to analgesic agent; Z91.030 Bee allergy status; Z79.899 Other long term (current) drug therapy; Z87.891 Personal history of nicotine dependence; Z82.49 Family history of ischemic heart disease and other diseases of the circulatory system; Z79.84 Long term (current) use of oral hypoglycemic drugs
CPT/HCPCS: 36415; 36600; 71045; 76700-TC; 80048; 80053; 80307; 81000; 82803-TC; 82962; 83036; 83690; 83735; 83880; 84443; 84484; 85025; 85379; 85610-TC; 85730-TC; 87081; 87086; 93005; 93306; 93923; 93970; 94002; 94640; 94660; 94760; 99285; A6209; G0378; J1030; J1644; J1815; J1940; J1956; J2060; J2704; J2930; J3490; J7030; J7050; Q9964